=== PATIENT | female | born 1980 | race African-American/Black ===

== ENCOUNTER 2016-09-13 17:16 | Emergency (ER) | payer BC ==
[~2016-09-13] VITALS: Ht 152.4 cm; Wt 81.6 kg
[2016-09-13 17:42] VITALS: BP 187/117; PULSE 92; RESP 16; TEMP 97; O2SAT 98
--- NOTE | 2016-09-13 17:47 | NUR ---
Patient to ER bed 2 to gown for evaluation. Side rails up. Report given to RACHEL PATTON.
--- NOTE | 2016-09-13 17:58 | NUR ---
Patient to ER C/O right upper quadrant pain 8/10 with nausea. Patient states that she has history of gallstones but no surgery yet. Denies diarrhea/constipation. afebrile. AAOx4, unlabored breathing, no signs of acute distress.
--- NOTE | 2016-09-13 18:01 | NUR ---
ER MD Pereyra at bedside for evaluation
[2016-09-13] MEDS ORDERED: cloNIDine HCL 0.1 MG TABLET PO ONE (18:15)
--- NOTE | 2016-09-13 19:33 | NUR ---
ER MD Pereyra at bedside discussing plan of care and blood pressure home care. Per ER MD Pereyra OK to discharge with 155/76 BP
[2016-09-13 19:39] VITALS: BP 155/76; PULSE 70; RESP 17; TEMP 98.1; O2SAT 99
--- NOTE | 2016-09-13 19:39 | NUR ---
Patient given written and verbal discharge instructions and verbalizes understanding. ER MD Pereyra discussed with patient the results and treatment provided. Patient in stable condition. ID arm band removed. Rx of motrin & norco given. Patient educated on pain management and to follow up with PMD. Pain Scale 0/10. Opportunity for questions provided and answered.
== END 2016-09-13 19:39 | disposition home or self-care (01) ==
LOC: SED 17:16
DX: K80.20 Calculus of gallbladder without cholecystitis without obstruction (principal); K21.9 Gastro-esophageal reflux disease without esophagitis; I10 Essential (primary) hypertension; Z88.1 Allergy status to other antibiotic agents; Z88.5 Allergy status to narcotic agent
CPT/HCPCS: 99283

== ENCOUNTER 2016-10-19 20:00 | Emergency (ER) | payer BC ==
[~2016-10-19] VITALS: Ht 152.4 cm; Wt 81.6 kg
[2016-10-19 20:18] VITALS: BP 169/106; PULSE 84; RESP 16; TEMP 98.2; O2SAT 97
[2016-10-19 21:00] LABS: BASOPHILS # (AUTO) 0.1 K/uL (0.0-0.2); BASOPHILS % (AUTO) 0.5 % (0.0-2.0); EOSINOPHILS # (AUTO) 0.1 K/uL (0.0-0.4); EOSINOPHILS % (AUTO) 0.6 % (0.0-4.0); HEMATOCRIT 41.9 % (36-48); LYMPHOCYTES # (AUTO) 2.6 K/uL (1.0-5.5); LYMPHOCYTES % (AUTO) 20.2 % (20.5-51.5); MEAN CORPUSCULAR HEMOGLOBIN 30 pg (27-31); MEAN CORPUSCULAR HGB CONC 34 % (32-36); MEAN CORPUSCULAR VOLUME 91 fL (79.0-98.0); MONOCYTES # (AUTO) 0.5 K/uL (0.0-1.0); NEUTROPHILS # (AUTO) 9.8 K/uL (1.8-7.7); NEUTROPHILS % (AUTO) 74.7 % (40.0-70.0); PLATELET COUNT (AUTO) 393 K/uL (130-430); RED BLOOD CELL COUNT(AUTO) 4.63 MIL/uL (4.2-6.2); RED CELL DISTRIBUTION WIDTH 12.5 % (9.0-15.0); WHITE BLOOD COUNT (AUTO) 13.1 K/uL (4.8-10.8)
[2016-10-19 21:06] LABS: CREATININE 0.91 mg/dL (0.55-1.30); POTASSIUM 3.5 mmol/L (3.5-5.1)
[2016-10-19 21:10] LABS: ALBUMIN 3.8 g/dL (3.4-4.8); TOTAL BILIRUBIN 0.7 mg/dL (0.0-1.0); TOTAL PROTEIN, SERUM 7.7 g/dL (6.4-8.3)
[2016-10-19 21:12] LABS: BILIRUBIN,URINE NEGATIVE (NEGATIVE); BLOOD, URINE NEGATIVE (NEGATIVE); CLARITY/URINE HAZY (CLEAR); COLOR,URINE YELLOW (YELLOW); GLUCOSE,URINE NEGATIVE (NEGATIVE); KETONES,URINE NEGATIVE (NEGATIVE); LEUKOCYTE ESTERASE ,URINE 1+ (NEGATIVE); NITRITE, URINE NEGATIVE (NEGATIVE); PROTEIN URINE NEGATIVE (NEGATIVE); UROBILINOGEN,URINE 0.2 (0.2-1.0)
[2016-10-19 21:22] LABS: BACTERIA,URINE FEW /HPF (None Seen); MUCUS,URINE None Seen /LPF (None Seen); RBC,URINE NONE SEEN /HPF (0-3)
--- NOTE | 2016-10-19 21:23 | NUR ---
Patient to ER bed 04 to gown for evaluation. Side rails up. Report given to
[2016-10-19] MEDS ORDERED: KETOROLAC TROMETHAMINE 60 MG/2 ML VIAL IM ONE (21:30)
--- NOTE | 2016-10-19 21:36 | NUR ---
Pt came into the ER in stable condition. Pt c/o right upper quad abd pain 04/16 that began at 1630. Pt stated that she was dx w/ gallstones in Apr 2016 and has since changed her diet, but today she ate a higher fat content diet and stated that pain has not been relieved w/ her normal pain managment of Motrin 800 and Tylenol 1gram. -n/v/d. -sob -chest pain. No acute distress noted at this time, will continue to monitor
--- NOTE | 2016-10-19 22:22 | NUR ---
ER at bedside examining patient.
[2016-10-19 22:35] VITALS: BP 127/88; PULSE 78; RESP 12; TEMP 98.9; O2SAT 99
--- NOTE | 2016-10-19 22:35 | NUR ---
Patient given written and verbal discharge instructions and verbalizes understanding. ER MD discussed with patient the results and treatment provided. Given copies of tests performed in ER. Patient in stable condition. ID arm band removed. IV catheter removed intact and dressing applied, no active bleeding. Rx of [] given. Patient educated on pain management and to follow up with PMD. Pain Scale []. Opportunity for questions provided and answered.
== END 2016-10-19 22:35 | disposition home or self-care (01) ==
LOC: SED 20:00
DX: K80.80 Other cholelithiasis without obstruction (principal); K21.9 Gastro-esophageal reflux disease without esophagitis; I10 Essential (primary) hypertension; Z88.1 Allergy status to other antibiotic agents; Z88.6 Allergy status to analgesic agent
CPT/HCPCS: 36415; 80053; 81000; 83690; 85025; 87086; 87186; 96372; 99284; J1885

== ENCOUNTER 2016-10-27 21:16 | Emergency (ER) | payer BC ==
--- NOTE | 2016-10-27 21:20 | NUR ---
Patient left without being seen. Patient was offered a hallway chair while we wait for MD. Patient refused to wait and LWBS.
== END 2016-10-27 21:20 | disposition left against medical advice (07) ==
LOC: SED 21:16
DX: R10.9 Unspecified abdominal pain (principal); K21.9 Gastro-esophageal reflux disease without esophagitis; I10 Essential (primary) hypertension; Z53.21 Procedure and treatment not carried out due to patient leaving prior to being seen by health care provider; Z88.1 Allergy status to other antibiotic agents; Z88.5 Allergy status to narcotic agent